=== PATIENT | female | born 1985 | race African-American/Black ===

== ENCOUNTER 2017-10-17 21:17 | Emergency (ER) | payer MEDICAID, OTHER ==
[~2017-10-17] VITALS: Ht 167.6 cm; Wt 110.6 kg
[~2017-10-17 21:17] MED LIST: FIORIC PO
[2017-10-17 21:31] VITALS: BP 160/73; PULSE 94; RESP 18; TEMP 98.7; O2SAT 100
[2017-10-17 22:05] VITALS: BP 160/73; PULSE 97; RESP 18; TEMP 98.7; O2SAT 100
[2017-10-17 22:32] LABS: BILIRUBIN, URINE NEG (NEG); BLOOD, URINE NEG (NEG); GLUCOSE,URINE NEG (NEG); KETONE, URINE NEG (NEG); NITRITE,URINE NEG (NEG); URINE LEUKOCYTE ESTERASE NEG (NEG)
[2017-10-17 22:42] LABS: CALCIUM 8.9 MG/DL (8.5-10.1)
[2017-10-17 22:43] LABS: BICARBONATE 24.4 MEQ/L (21.0-32.0)
[2017-10-17 22:46] LABS: CREATININE 0.57 MG/DL (0.50-1.00)
[2017-10-17 22:47] LABS: URINE COLOR YELLOW (YELLW/STRAW)
[2017-10-17 22:48] LABS: BACTERIA, URINE FEW /hpf; MUCUS URINE FEW /lpf (OCC); WBC, URINE 0-2 /hpf (0-5)
[2017-10-17 22:56] LABS: AUTOMATED NEUTROPHIL # 4.8 TH/MM3 (1.8-7.7); BASOPHIL # 0.1 TH/MM3 (0-0.2); BASOPHIL % 0.7 % (0.0-2.0); EOSINOPHIL # 0.1 TH/MM3 (0-0.4); EOSINOPHIL % 1.2 % (0.0-4.0); HEMATOCRIT 32.3 % (35.0-46.0); HEMOGLOBIN 10.4 GM/DL (11.6-15.3); LYMPH % 26.1 % (9.0-44.0); MEAN CELL VOLUME 76.9 FL (80.0-100.0); MEAN CORPUSCULAR HEMOGLOBIN 24.8 PG (27.0-34.0); MEAN CORPUSCULAR HGB CONC 32.3 % (32.0-36.0); MEAN PLATELET VOLUME 8.5 FL (7.0-11.0); MONO % 6.7 % (0.0-8.0); MONOCYTE # 0.5 TH/MM3 (0-0.9); NEUT % 65.3 % (16.0-70.0); PLATELET COUNT 261 TH/MM3 (150-450); RED BLOOD COUNT 4.21 MIL/MM3 (4.00-5.30); RED CELL DISTRIBUTION WIDTH 17.1 % (11.6-17.2); WHITE BLOOD COUNT 7.5 TH/MM3 (4.0-11.0)
--- NOTE | 2017-10-17 23:38 | PD ---
HPI Chief Complaint: Related Problem Time Seen by Provider: 21:51 Travel History International Travel<30 days: No Contact w/Intl Traveler<30days: No Traveled to known affect area: No History of Present Illness HPI This is a 32-year-old female who presents to the emergency department with spotting in the setting of early . She thinks she is about 10 weeks by dates. Yesterday and today she noticed some light spotting on her toilet paper, intermittent, mild, associated with some right lower abdominal pain. She's not had an ultrasound yet in this . She has 4 children and has had one miscarriage. PFSH Past Medical History Asthma: Yes Cardiovascular Problems: Yes (2012) Diminished Hearing: No Myocardial Infarction: Yes Tetanus Vaccination: > 5 Years Influenza Vaccination: No ?: LMP: JULY 2017 : 6 Para: 4 Miscarriage: 1 Past Surgical History Section: Yes Gynecologic Surgery: Yes () Social History Alcohol Use: No Tobacco Use: No Substance Use: No Allergies-Medications (Allergen,Severity, Reaction): Coded Allergies: No Known Allergies (Unverified , 06/16/15) Reported Meds & Prescriptions Reported Meds & Active Scripts Active Fioricet Tab (Acetaminophen/Butalbital/Caffeine) 1 Tab 1 Tab PO Q6H PRN Review of Systems Except as stated in HPI: all other systems reviewed are Neg Physical Exam Narrative GENERAL:Well appearing, no acute distress SKIN: Focused skin assessment warm and dry. HEAD: Atraumatic. Normocephalic. EYES: Pupils equal and round. No injection or drainage. ENT: Moist mucous membranes NECK: Trachea midline. CARDIOVASCULAR: Regular rate and rhythm. No murmur appreciated. RESPIRATORY: Clear to auscultation. Breath sounds equal bilaterally. GASTROINTESTINAL: Abdomen soft, non-tender, nondistended. 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 NEUROLOGICAL: Awake and alert. No obvious cranial nerve deficits. Moving all extremities. PSYCHIATRIC: Appropriate mood and affect; insight and judgment normal. Data Data Last Documented VS Vital Signs Date Time Temp Pulse Resp B/P (MAP) Pulse Ox O2 Delivery O2 Flow Rate FiO2 10/17/17 22:05 98.7 97 18 160/73 (102) 100 Orders Orders Urinalysis - C+S If Indicated (10/17/17 21:52) Ed Urine Pregnancytest Poc (10/17/17 21:52) Complete Blood Count With Diff (10/17/17 21:52) Basic Metabolic Panel (Bmp) (10/17/17 21:52) Beta Hcg (Quant/Titer) (10/17/17 21:52) ^ Insert Iv (10/17/17 21:52) Type And Screen (10/17/17 21:52) Ed Poc Ultrasound (10/17/17 ) Labs Laboratory Tests Test 10/17/17 22:22 10/17/17 22:50 Urine Color YELLOW Urine Turbidity CLEAR Urine pH 6.0 Urine Specific [place] 1.031 Urine Protein NEG mg/dL Urine Glucose (UA) NEG mg/dL Urine Ketones NEG mg/dL Urine Occult Blood NEG Urine Nitrite NEG Urine Bilirubin NEG Urine Leukocyte Esterase NEG Urine WBC 0-2 /hpf Urine Squamous Epithelial Cells 6-8 /hpf Urine Bacteria FEW /hpf Urine Mucus FEW /lpf Microscopic Urinalysis Comment CULT NOT INDICATED Blood Urea Nitrogen 12 MG/DL Creatinine 0.57 MG/DL Random Glucose 83 MG/DL Calcium Level 8.9 MG/DL Sodium Level 135 MEQ/L Potassium Level 4.2 MEQ/L Chloride Level 104 MEQ/L Carbon Dioxide Level 24.4 MEQ/L Anion Gap 7 MEQ/L Estimat Glomerular Filtration Rate 150 ML/MIN Human Chorionic Gonadotropin, Quant 173133 MIU/ML White Blood Count 7.5 TH/MM3 Red Blood Count 4.21 MIL/MM3 Hemoglobin 10.4 GM/DL Hematocrit 32.3 % Mean Corpuscular Volume 76.9 FL Mean Corpuscular Hemoglobin 24.8 PG Mean Corpuscular Hemoglobin Concent 32.3 % Red Cell Distribution Width 17.1 % Platelet Count 261 TH/MM3 Mean Platelet Volume 8.5 FL Neutrophils (%) (Auto) 65.3 % Lymphocytes (%) (Auto) 26.1 % Monocytes (%) (Auto) 6.7 % Eosinophils (%) (Auto) 1.2 % Basophils (%) (Auto) 0.7 % Neutrophils # (Auto) 4.8 TH/MM3 Lymphocytes # (Auto) 2.0 TH/MM3 Monocytes # (Auto) 0.5 TH/MM3 Eosinophils # (Auto) 0.1 TH/MM3 Basophils # (Auto) 0.1 TH/MM3 CBC Comment AUTO DIFF Differential Comment AUTO DIFF CONFIRMED Platelet Estimate NORMAL Platelet Morphology Comment NORMAL MDM Medical Decision Making Medical Screen Exam Complete: Yes Emergency Medical Condition: Yes Interpretation(s) Afebrile, mild tachycardia, hypertensive Mild anemia Mild hyponatremia HCG is 146,000 Urinalysis demonstrates some bacteria Blood type is B+ Differential Diagnosis Threatened miscarriage, incomplete miscarriage, completed miscarriage, urinary tract infection Narrative Course This is a 32-year-old female who presents to the emergency department with spotting in the setting of early . She is Rh+. Labs are obtained which were reassuring. Ultrasound was performed demonstrating a single intrauterine with a heart rate in the 180s. Pelvic exam was unremarkable. Urinalysis demonstrates some bacteria. Patient will be discharged on antibiotics and vitamins. She was counseled regarding threatened miscarriage. Procedures Procedure Narrative [id number] ultrasound: Intrauterine measuring about 10 weeks 5 days to the heart rate of 182 Diagnosis Primary Impression: Threatened miscarriage Additional Impression: Asymptomatic bacteriuria Patient Instructions: General Instructions Additional Instructions: You have been diagnosed with a threatened miscarriage. Many women who have vaginal bleeding in early go on to have normal pregnancies. However some women that have vaginal bleeding will have a miscarriage and it is important to followup with your airport ramp agent. If you develop severe abdominal pain, fever, persistent vomiting or inability to eat, heavy vaginal bleeding using more than one pad an hour, lightheadedness , dizziness, chest pain or shortness of breath return to the emergency department immediately. Followup with your airport ramp agent as soon as possible. Take Tylenol as needed for pain. Med/Other Pt SpecificInfo: Prescription(s) given Scripts Pnv No.95/Ferrous Fum/Folic AC ( Vitamins Tablet) 28 Mg Iron-800 Mcg Tablet 1 TAB PO DAILY, #30 Prov: Klarissa Lopez MD 10/17/17 Nitrofurantoin Monohydrate Macrocrystals (Macrobid) 100 Mg Capsule 100 MG PO BID for Infection for 7 Days, #14 CAP 0 Refills Prov: Klarissa Lopez MD 10/17/17 Disposition: 01 DISCHARGE HOME Condition: Stable Klarissa Lopez MD Oct 17, 2017 23:38
[2017-10-17] MEDS ORDERED: MACR100C2 PO (23:41)
[2017-10-17] MEDS ORDERED: PRENTAB7 PO (23:41)
[2017-10-17 23:59] VITALS: BP 125/58
== END 2017-10-18 | disposition home or self-care (01) ==
LOC: PHED 21:17
DX: O20.0 Threatened abortion (principal); R00.0 Tachycardia, unspecified; O99.011 Anemia complicating pregnancy, first trimester; E87.1 Hypo-osmolality and hyponatremia; J45.909 Unspecified asthma, uncomplicated; I25.2 Old myocardial infarction; Z3A.10 10 weeks gestation of pregnancy
CPT/HCPCS: 80048; 81001; 84702; 84703; 85025; 86850; 86900; 86901; 99284